=== PATIENT | female | born 1970 | race Caucasian/White ===

== ENCOUNTER 2025-02-10 16:06 | Outpatient (CLI) | payer MEDICAID, SELFPAY ==
[2025-02-11 09:45] LABS: Syphilis Serology (RPR) Negative (Negative)
[2025-02-11 10:34] LABS: HBs Antibody, Quant 761.5 mIU/mL (See Note); Hepatitis B Surface Ab Positive (See Note)
[2025-02-11 10:48] LABS: Hepatitis C Ab w Rflx HCV PCR Negative (Negative)
[2025-02-11 11:24] LABS: HIV-1/2 Ag & Ab Screen Negative (Negative)
[2025-02-11 11:42] LABS: Hep B Core Antibody Negative (Negative)
[2025-02-11 12:22] LABS: Hepatitis B Surface Ag Negative (Negative)
== END 2025-02-10 16:07 | disposition home or self-care (01) ==
LOC: LBO 16:07
PROVIDERS: Visit Provider Physician Assistant Medical
DX: Z11.3 Encounter for screening for infections with a predominantly sexual mode of transmission (principal); Z11.59 Encounter for screening for other viral diseases; Z11.4 Encounter for screening for human immunodeficiency virus [HIV]
CPT/HCPCS: 36415; 86704; 86706; 86803; 87340; 87389; 86592